=== PATIENT | male | born 1985 | race Caucasian/White ===

== ENCOUNTER 2021-01-04 18:35 | Inpatient (IN) | payer MEDICAID, OTHER ==
[~2021-01-04] VITALS: Ht 190.5 cm; Wt 90.9 kg
[2021-01-04] MEDS ORDERED: ACETAMINOPHEN ES 500 MG TABLET PO ONE (19:00)
[2021-01-04] MEDS ORDERED: CEFTRIAXONE 1 G VIAL IM ONE (19:00)
[2021-01-04] MEDS ORDERED: ONDANSETRON ODT 4 MG TAB.RAPDIS SL ONE (19:00)
--- NOTE | 2021-01-04 19:00 | NUR ---
at bedside to do MSE.
[2021-01-04] MEDS ORDERED: CEPH500C2 PO (19:01)
[2021-01-04] MEDS ORDERED: ACETAMINOPHEN ES 500 MG TABLET ONE (19:09)
[2021-01-04] MEDS ORDERED: ONDANSETRON ODT 4 MG TAB.RAPDIS ONE (19:09)
[2021-01-04] MEDS ORDERED: LIDOCAINE HCL 1% 20 ML VIAL ONE (19:09)
[2021-01-04] MEDS ORDERED: CEFTRIAXONE 1 G VIAL ONE (19:10)
[2021-01-04] MEDS ORDERED: KETOROLAC TROMETHAMINE 30 MG INJ IVP ONE (19:15)
[2021-01-04] MEDS ORDERED: IV NORMAL SALINE 1000 ML BAG IV ONE (19:15)
[2021-01-04] MEDS ORDERED: VANCOMYCIN IV 1,000 MG in IV DEXTROSE 5% 250 ML IV ONE (19:15)
[2021-01-04] MEDS ORDERED: ONDANSETRON 4 MG/2 ML VIAL IV ONE (19:15)
--- NOTE | 2021-01-04 19:15 | NUR ---
xray techician at b[facility] for portable chest xray .
--- NOTE | 2021-01-04 19:30 | NUR ---
mani at [employer] [employer] .
[2021-01-04 19:33] LABS: BASOPHILS % (AUTO) 0.2 % (0.0-2.0); HEMATOCRIT 43.5 % (36.7-47.1); HEMOGLOBIN 15.2 g/dL (12.5-16.3); LYMPHOCYTES % (AUTO) 15.1 % (20.5-51.5); MEAN CORPUSCULAR HEMOGLOBIN 29.7 uug (23.8-33.4); MEAN CORPUSCULAR HGB CONC 35 g/dL (32.5-36.3); MONOCYTES # (AUTO) 0.8 K/uL (2.0-10.0); MONOCYTES % (AUTO) 11.9 % (0.0-11.0); NEUTROPHILS % (AUTO) 72.8 % (38.5-71.5); PLATELET COUNT (AUTO) 176 K/uL (152-348); RED BLOOD CELL COUNT(AUTO) 5.12 MIL/uL (4.06-5.63); WHITE BLOOD COUNT (AUTO) 6.8 K/uL (3.6-10.2)
[2021-01-04] MEDS ORDERED: VANCOMYCIN IV 200 ML ONE (19:34)
[2021-01-04 19:44] LABS: BILIRUBIN,DIRECT 0.2 mg/dL (0.0-0.2); BILIRUBIN,TOTAL 0.6 mg/dL (0.2-1.0); CREATININE 1.4 mg/dL (0.6-1.3); POTASSIUM 3.1 mmol/L (3.5-5.1)
[2021-01-04 19:45] LABS: TOTAL PROTEIN, SERUM 8.1 g/dL (6.4-8.2)
--- NOTE | 2021-01-04 19:52 | NUR ---
manufacturing tech Aubrey states the patient is COVID +, MD Mejia Toussaint made aware.
[2021-01-04 19:54] LABS: *CLARITY,URINE CLEAR (CLEAR)
[2021-01-04 19:55] LABS: *BILIRUBIN,URIN 1+ (NEGATIVE); *BLOOD, URINE NEGATIVE (NEGATIVE); *COLOR,URINE YELLOW (YELLOW); *KETONES,URINE 2+ (NEGATIVE); *UROBILINOGEN,URINE 0.2 E.U./dl (NORMAL); LEUKOCYTE ESTERASE ,URINE NEGATIVE (NEGATIVE); NITRITE, URINE NEGATIVE (NEGATIVE); UGLUCOSE NEGATIVE (NEGATIVE)
[2021-01-04] MEDS ORDERED: KETOROLAC TROMETHAMINE 30 MG INJ ONE (19:56)
[2021-01-04] MEDS ORDERED: ONDANSETRON 4 MG/2 ML VIAL ONE (19:56)
[2021-01-04 19:58] LABS: *AMPHETAMINE, URINE NEGATIVE (NEGATIVE); *CANNABINOID, URINE NEGATIVE (NEGATIVE); *COCCAINE, URINE NEGATIVE (NEGATIVE); *OPIATE, URINE NEGATIVE (NEGATIVE); *PHENCYCLIDINE SCREEN,URINE NEGATIVE (NEGATIVE)
[2021-01-04 20:07] LABS: BACTERIA,URINE NONE SEEN /HPF (NONE SEEN); RBC,URINE 0-3 /HPF (0-3); SQUAMOUS EPITHELIAL CELL,UR NONE SEEN /HPF (NONE SEEN)
--- NOTE | 2021-01-04 21:05 | NUR ---
BELONGINGS INVENTORY DONE AND SIGNED BY PATIENT ,PATIENT WANTS WALLET,KEYS AND CELL PHONE WITH HIM .
--- NOTE | 2021-01-04 21:09 | NUR ---
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
--- NOTE | 2021-01-04 21:10 | NUR ---
: GONZALEZ SPOKED WITH PATIENT AND THIS TIME PATIENT AGRESS TO STAY AND BE ADMITTED.
[2021-01-04] MEDS ORDERED: MAGNESIUM HYDROXIDE 30 ML LIQUID UDC PO PRN (21:15)
[2021-01-04] MEDS ORDERED: ONDANSETRON 4 MG/2 ML VIAL IV PRN (21:15)
--- NOTE | 2021-01-04 21:16 | NUR ---
REPORT GIVEN TO YULI CURTIS IN MEDICAL SURGICAL FLOOR .PATIENT GOING TO 316.
--- NOTE | 2021-01-04 21:30 | NUR ---
WHEELED PATIENT TO ROOM 316, PATIENT WENT WITH ALL BELONGINGS AND V/S WNL . NO RESPIRATORY DISTRESS.PATIENT COVID + WENT TO ROOM 316 AND INFRMED RN FOR COVID PRECAUTION .
[2021-01-04 21:45] VITALS: BP 106/71
--- NOTE | 2021-01-04 21:45 | NUR ---
Received patient via wheelchair from the ED admitted for Cellulitis. Patient AAOx4, mentally delayed. On RA O2 @ 97% denies SOB, dry cough present. Temp 99.0 orally. COVID rapid positive. Isolation precautions initiated and in place. Pt ambulatory and steady. Left upper thigh redness, patient denies pain or discomfort, stated "I think it might just be a pimple and I might be able to go home, I don't think it's bad", picture taken and in chart. Safety measures in place, bed locked and in lowest position.
[2021-01-04] MEDS: IV NS 1000 ML 1,000 ML IV PRN (23:00)
[2021-01-05] MEDS: ACETAMINOPHEN 325 MG TABLET PO PRN ×3 (02:59→16:23)
--- NOTE | 2021-01-05 03:15 | NUR ---
Patient c/o fever and chills. Oral temp 102.0. Patient covered in multiple heavy blankets. Advised patient to take remove the blankets and take the Tylenol, patient stated "I am probably fine and don't need the tylenol. I need more blankets because im cold". Provided patient education, after discussing patient became willing to take prn medication and remove blankets. Administered Tylenol per orders and provided cooling measures.
[2021-01-05] MEDS: HYDROCODONE/APAP 5-325MG TABLET PO PRN ×3 (04:32→19:47)
[2021-01-05 04:50] VITALS: BP 105/64
[2021-01-05 06:27] LABS: BASOPHILS % (AUTO) 0.3 % (0.0-2.0); HEMATOCRIT 36.7 % (36.7-47.1); LYMPHOCYTES # (AUTO) 0.9 K/uL (20.0-40.0); LYMPHOCYTES % (AUTO) 15.3 % (20.5-51.5); MEAN CORPUSCULAR HEMOGLOBIN 29.9 uug (23.8-33.4); MEAN CORPUSCULAR HGB CONC 36 g/dL (32.5-36.3); MEAN CORPUSCULAR VOLUME 84.3 fL (73.0-96.2); MONOCYTES # (AUTO) 0.6 K/uL (2.0-10.0); MONOCYTES % (AUTO) 10.4 % (0.0-11.0); NEUTROPHILS # (AUTO) 4.4 K/uL (1.8-8.9); PLATELET COUNT (AUTO) 155 K/uL (152-348); RED BLOOD CELL COUNT(AUTO) 4.35 MIL/uL (4.06-5.63); WHITE BLOOD COUNT (AUTO) 5.9 K/uL (3.6-10.2)
[2021-01-05] MEDS: PANTOPRAZOLE SODIUM 40 MG TABLET.DR PO SCH (06:32)
[2021-01-05 06:41] LABS: CREATININE 1.4 mg/dL (0.6-1.3); MAGNESIUM 1.9 mg/dL (1.8-2.4); PHOSPHOROUS 2.5 mg/dL (2.5-4.9); POTASSIUM 3.4 mmol/L (3.5-5.1)
[2021-01-05 06:46] LABS: THYROID STIMULATING HORMONE 1.65 mIU/mL (0.358-3.740)
--- NOTE | 2021-01-05 06:48 | NUR ---
Patient covered in multiple layers of blankets, refusing to remove. Oral temp 102.0, administered Tylenol and cooling measures, after providing lengthy patient education. C/o body aches and cough. Pain medication administered per orders. Latest temp 99.2 Denies SOB, O2 95% on RA. Isolation and safety measures in place.
[2021-01-05] MEDS ORDERED: HYDROCODONE BIT/HOMATROPINE 5 ML UDC PO PRN (09:30)
[2021-01-05] MEDS ORDERED: POTASSIUM CHLORIDE 20 MEQ TAB.PRT.SR PO ONE (09:45)
[2021-01-05] MEDS: CEFTRIAXONE 1 G in IV DEXTROSE 5% 50 ML IV SCH (10:32)
[2021-01-05] MEDS: VANCOMYCIN IV 2,000 MG in IV DEXTROSE 5% 500 ML IV SCH (11:11)
[2021-01-05 11:35] VITALS: BP 109/65
[2021-01-05] MEDS ORDERED: VANCOMYCIN IV 2,000 MG in IV DEXTROSE 5% 500 ML IV SCH (12:00)
--- NOTE | 2021-01-05 13:00 | NUR ---
DR WESTBROOK WAS AT PATIENT BEDSIDE AND EXAMINED PATIENT'S REDNESS TO HIS THIGH
[2021-01-05] MEDS: IV NS 1000 ML 1,000 ML IV PRN (15:12)
[2021-01-05 16:00] VITALS: BP 102/61
[2021-01-05 16:06] LABS: *BILIRUBIN,URIN NEGATIVE (NEGATIVE); *BLOOD, URINE NEGATIVE (NEGATIVE); *CLARITY,URINE CLEAR (CLEAR); *COLOR,URINE YELLOW (YELLOW); *KETONES,URINE NEGATIVE (NEGATIVE); *UROBILINOGEN,URINE 0.2 E.U./dl (NORMAL); LEUKOCYTE ESTERASE ,URINE NEGATIVE (NEGATIVE); NITRITE, URINE NEGATIVE (NEGATIVE); UGLUCOSE NEGATIVE (NEGATIVE)
--- NOTE | 2021-01-05 16:58 | NUR ---
patient is alert, oriented, very repetitive, noted with fever, no chills, no nausea, no vomiting, cooling measures done, tylenol given, room air, no sob, resp even nonlabored, no acute distress noted, continue to monitor
--- NOTE | 2021-01-05 17:21 | NUR ---
Patient still noted with temp 103 orally, dr carrera made aware, with order to start remdesivir, patient denied chills, continue to monitor
--- NOTE | 2021-01-05 18:26 | NUR ---
cooling blanked placed under patient to manage the temp, continue to monitor, patient is alert, oriented x4, no chills, no distress noted
--- NOTE | 2021-01-05 18:42 | NUR ---
patient oral temp came down to 100.3 with cooling blanket, no distress noted, continue to monitor
--- NOTE | 2021-01-05 18:43 | NUR ---
patient refused monitoring of rectal temp, patient right to refuse respected, continue to monitor oral temp
[2021-01-05] MEDS ORDERED: CEFTRIAXONE 1 G in IV DEXTROSE 5% 50 ML IV SCH (20:00)
--- NOTE | 2021-01-05 20:10 | NUR ---
PATIENT HAS 102.6 TEMP ORAL, REFUSED TO COOLING BLANKET, GIVEN ICE BAG, REQUEST FOR NARCO, 95% AT ROOM AIR AT THIS TIME, REFUSED OXYGEN. WILL CONT TO MONITOR.
[2021-01-05 20:30] VITALS: BP 104/60
--- NOTE | 2021-01-05 21:05 | NUR ---
INFECTIOUS NURSE BRIGITTE MADE AWARE OF PATIENT ELEVATED TEMP 102., WITH NO NEW ORDER AT THIS TIME. PATIENT CONTINUE ON COOLING MEASURE, REFUSED TYLENOL, REFUSED COOLING BLANKET, GIVEN ICE PACK FOR PLACE ON BOTH ARMPIT, AND ICE WATER TO DRINK, CONT ON PAIN MANAGEMENT. CALL LIGHT WITHIN REACH,
--- NOTE | 2021-01-05 23:05 | NUR ---
NOTIFY REGINA SENIOR ACCOUNT CLERK REGARDING TEMP OF 103. ORALLY, AND PATIENT NON COMPLIANT WITH CARE AND MEDICATIONS, PATIENT ALERT ORIENTED, NO SOB NO CHEST PAIN, NO S/S OF DISTRESS, KEPT SAYING "I'M RICH" "I FEEL RICH". CONT COOLING MEASURES, CONT TO MONITOR.
[2021-01-06] MEDS: VANCOMYCIN IV 2,000 MG in IV DEXTROSE 5% 500 ML IV SCH ×2 (00:33→15:30)
[2021-01-06] MEDS: HYDROCODONE/APAP 5-325MG TABLET PO PRN (00:34)
[2021-01-06] MEDS: ACETAMINOPHEN 325 MG TABLET PO PRN ×2 (00:34→06:52)
--- NOTE | 2021-01-06 00:49 | NUR ---
PATIENT ALERT ORIENTED, NO S/S OF DISTRESS, COOLING MEASURE CONTINUE, RECHEK TEMP 100.3. CONT ON PAIN MANAGEMENT, CALL LIGHT WITHIN REACH.
[2021-01-06 04:35] VITALS: BP 108/63
[2021-01-06] MEDS: IV NS 1000 ML 1,000 ML IV PRN ×2 (04:42→14:00)
[2021-01-06 06:50] LABS: BASOPHILS % (AUTO) 0.2 % (0.0-2.0); HEMATOCRIT 36.9 % (36.7-47.1); LYMPHOCYTES # (AUTO) 1.3 K/uL (20.0-40.0); LYMPHOCYTES % (AUTO) 13.9 % (20.5-51.5); MEAN CORPUSCULAR HEMOGLOBIN 29.8 uug (23.8-33.4); MEAN CORPUSCULAR HGB CONC 35 g/dL (32.5-36.3); MEAN CORPUSCULAR VOLUME 84.4 fL (73.0-96.2); MONOCYTES # (AUTO) 0.4 K/uL (2.0-10.0); MONOCYTES % (AUTO) 4.9 % (0.0-11.0); NEUTROPHILS # (AUTO) 7.3 K/uL (1.8-8.9); PLATELET COUNT (AUTO) 143 K/uL (152-348); RED BLOOD CELL COUNT(AUTO) 4.38 MIL/uL (4.06-5.63); WHITE BLOOD COUNT (AUTO) 9.1 K/uL (3.6-10.2)
[2021-01-06] MEDS: PANTOPRAZOLE SODIUM 40 MG TABLET.DR PO SCH (06:51)
[2021-01-06 07:17] LABS: THYROID STIMULATING HORMONE 0.869 mIU/mL (0.358-3.740)
--- NOTE | 2021-01-06 07:20 | NUR ---
report received. patient awake in bed, no complains of any pain or distress noted at this time. call light kept within reach. will continue to monitor.
--- NOTE | 2021-01-06 07:36 | NUR ---
Temp 103. given tylenol plus cooling measure, current temp 99.9 oral. alert oriented, no s/s of distress.
[2021-01-06 07:43] LABS: CREATININE 1.4 mg/dL (0.6-1.3); MAGNESIUM 1.7 mg/dL (1.8-2.4); PHOSPHOROUS 2.4 mg/dL (2.5-4.9); POTASSIUM 3.4 mmol/L (3.5-5.1); URIC ACID 6.1 mg/dL (3.5-7.2)
[2021-01-06] MEDS: DEXAMETHASONE SOD PHOSPHATE 10 MG INJ IV SCH (09:15)
[2021-01-06] MEDS: CEFTRIAXONE 1 G in IV DEXTROSE 5% 50 ML IV SCH (09:16)
[2021-01-06] MEDS: ENOXAPARIN SODIUM 40 MG/0.4 ML DISP.SYRIN SQ SCH (09:25)
[2021-01-06] MEDS ORDERED: CEFTRIAXONE 1 G in IV DEXTROSE 5% 50 ML IV SCH (10:15)
[2021-01-06] MEDS ORDERED: POTASSIUM CHLORIDE 20 MEQ TAB.PRT.SR PO SCH (10:30)
[2021-01-06] MEDS: MAGNESIUM SULFATE/D5W 100 ML IV SCH ×2 (10:55→13:09)
[2021-01-06] MEDS: ACETYLCYSTEINE 10% 4ML VIAL NEB SCH ×3 (11:45→23:30)
[2021-01-06] MEDS ORDERED: REMDESIVIR (CHARGED) 200 MG in IV NORMAL SALINE 210 ML IV ONE (12:00)
[2021-01-06 12:51] VITALS: BP 106/60
--- NOTE | 2021-01-06 13:44 | NUR ---
Pt refused HHN, sts does not want medicine, nurse notified and aware, Sarah RN / Génesis RN.. Pt in bed semi-Anderson's, dry cough, sts sore throat, no respiratory distress / difficulty breathing.. will continue to monitor..
[2021-01-06 16:00] VITALS: BP 102/60
[2021-01-06] MEDS ORDERED: NEUTRA PHOS PACKET PO ONE (17:15)
--- NOTE | 2021-01-06 18:34 | NUR ---
patient awake in bed HOB elevated, no complains of any pain or discomfort at this time. iv patent and running with NS at 75ml/hr. on nasal cannula at 2L with humidifier. no SOB noted at this time. safety precautions maintained. call light kept within reach. will report to oncoming nurse.
--- NOTE | 2021-01-06 20:00 | NUR ---
RECEIVED PATIENT AWAKE IN BED. A/O X4, BUT NEEDS FREQUENT RE-DIRECTION. ON ISOLATION FOR COVID-POSITIVE. VS WNL. AFEBRILE. ON O2 2L NC SATING WELL. NO RESP.DISTRESS NOTED. DENIES ANY PAIN, BUT C/O DISCOMFORT IN CHEST FROM FREQUENT COUGHING, NON-PRODUCTIVE, DENIES ANY NEED FOR ANY PAIN MEDICATION. IV SITE NOTED TO RIGHT AC, LEAKING. REMOVED AND RESTARTED TO LEFT FA, #22 GAUGE. CALL LIGHT IN REACH. ALL NEEDS ATTENDED. WILL CONTINUE TO MONITOR AND ASSESS.
[2021-01-06 20:25] VITALS: BP 105/69
[2021-01-07] VITALS: BP 102/60
[2021-01-07 03:58] LABS: BASOPHILS % (AUTO) 0.2 % (0.0-2.0); HEMOGLOBIN 13.4 g/dL (12.5-16.3); LYMPHOCYTES % (AUTO) 7.7 % (20.5-51.5); MEAN CORPUSCULAR HEMOGLOBIN 28.8 uug (23.8-33.4); MEAN CORPUSCULAR HGB CONC 34 g/dL (32.5-36.3); MEAN CORPUSCULAR VOLUME 84.1 fL (73.0-96.2); MONOCYTES # (AUTO) 0.6 K/uL (2.0-10.0); MONOCYTES % (AUTO) 4.9 % (0.0-11.0); NEUTROPHILS # (AUTO) 11.3 K/uL (1.8-8.9); NEUTROPHILS % (AUTO) 87.2 % (38.5-71.5); PLATELET COUNT (AUTO) 169 K/uL (152-348); RED BLOOD CELL COUNT(AUTO) 4.64 MIL/uL (4.06-5.63)
[2021-01-07 04:14] LABS: BILIRUBIN,DIRECT 0.2 mg/dL (0.0-0.2); BILIRUBIN,TOTAL 0.4 mg/dL (0.2-1.0); CREATININE 1.2 mg/dL (0.6-1.3); PHOSPHOROUS 1.8 mg/dL (2.5-4.9); POTASSIUM 3.7 mmol/L (3.5-5.1); TOTAL PROTEIN, SERUM 6.7 g/dL (6.4-8.2)
[2021-01-07 04:30] VITALS: BP 109/66
[2021-01-07] MEDS: VANCOMYCIN IV 2,000 MG in IV DEXTROSE 5% 500 ML IV SCH ×2 (04:38→19:47)
[2021-01-07] MEDS: PANTOPRAZOLE SODIUM 40 MG TABLET.DR PO SCH (06:03)
--- NOTE | 2021-01-07 06:52 | NUR ---
ON TELE SR.
[2021-01-07] MEDS: ACETYLCYSTEINE 10% 4ML VIAL NEB SCH ×3 (07:35→22:33)
[2021-01-07] MEDS: DEXAMETHASONE SOD PHOSPHATE 10 MG INJ IV SCH (08:25)
[2021-01-07] MEDS: ENOXAPARIN SODIUM 40 MG/0.4 ML DISP.SYRIN SQ SCH (08:52)
[2021-01-07] MEDS: CEFTRIAXONE 1 G in IV DEXTROSE 5% 50 ML IV SCH (09:43)
[2021-01-07 11:15] VITALS: BP 102/59
[2021-01-07] MEDS: IV NS 1000 ML 1,000 ML IV PRN (11:50)
[2021-01-07] MEDS: REMDESIVIR (CHARGED) 100 MG in IV NORMAL SALINE 100 ML IV SCH (11:50)
[2021-01-07] MEDS ORDERED: POTASSIUM PHOSPHATE MM 15 MMOL in IV NORMAL SALINE 250 ML IV ONE (13:00)
--- NOTE | 2021-01-07 13:00 | NUR ---
Patient tolerated Remdesivir infusion. BP 105/60 HR 80s. No s/s of distress or SOB noted. Patient on RA SpO2 93-95%. Denies pain at this time.
[2021-01-07 15:31] VITALS: BP 103/64
--- NOTE | 2021-01-07 15:49 | NUR ---
received COVID PCR result from Adeel from laboratory. Result: COVID PCR (+). notified.
[2021-01-07 20:38] VITALS: BP 104/61
[2021-01-08 00:36] VITALS: BP 108/60
[2021-01-08 04:00] VITALS: BP 108/67
[2021-01-08 05:46] LABS: BASOPHILS % (AUTO) 0.3 % (0.0-2.0); HEMATOCRIT 39.3 % (36.7-47.1); HEMOGLOBIN 13.6 g/dL (12.5-16.3); LYMPHOCYTES # (AUTO) 0.9 K/uL (20.0-40.0); LYMPHOCYTES % (AUTO) 6.2 % (20.5-51.5); MEAN CORPUSCULAR HEMOGLOBIN 29.4 uug (23.8-33.4); MEAN CORPUSCULAR HGB CONC 35 g/dL (32.5-36.3); MONOCYTES # (AUTO) 1.1 K/uL (2.0-10.0); MONOCYTES % (AUTO) 7.9 % (0.0-11.0); NEUTROPHILS % (AUTO) 85.6 % (38.5-71.5); PLATELET COUNT (AUTO) 200 K/uL (152-348); RED BLOOD CELL COUNT(AUTO) 4.62 MIL/uL (4.06-5.63)
--- NOTE | 2021-01-08 05:55 | NUR ---
Patient ALOx4.On RA, no s/s of distress noted. Iv on left FA 20g patent and intact with IVF running well at 75 ml/hr.Administered IV ATB.No a/r noted.Patient is concerned on his left groin redness.No skin breakdown.Patient was seen and examined by PRODUCT SAFETY TEST ENGINEER Mariela with new order US Pelvic.Patient ambulates to bathroom .Bmx1. Compliant with medication.Proper PPE strictly observed for covid.Vss.All needs anticipated and met accordingly.
[2021-01-08 06:03] LABS: BILIRUBIN,DIRECT 0.1 mg/dL (0.0-0.2); BILIRUBIN,TOTAL 0.5 mg/dL (0.2-1.0); POTASSIUM 3.9 mmol/L (3.5-5.1); TOTAL PROTEIN, SERUM 6.9 g/dL (6.4-8.2)
[2021-01-08] MEDS: PANTOPRAZOLE SODIUM 40 MG TABLET.DR PO SCH (06:05)
--- NOTE | 2021-01-08 07:15 | NUR ---
patient awake in bed, no signs of any pain or discomfort noted at this time. call light within reach, will continue to monitor.
[2021-01-08 07:23] LABS: MAGNESIUM 2.3 mg/dL (1.8-2.4); PHOSPHOROUS 2.4 mg/dL (2.5-4.9)
[2021-01-08] MEDS: ACETYLCYSTEINE 10% 4ML VIAL NEB SCH ×3 (07:35→23:30)
[2021-01-08] MEDS ORDERED: POTASSIUM PHOSPHATE MM 15 MMOL in IV NORMAL SALINE 250 ML IV ONE (08:30)
[2021-01-08] MEDS: VANCOMYCIN IV 2,000 MG in IV DEXTROSE 5% 500 ML IV SCH ×2 (08:31→19:37)
[2021-01-08] MEDS: DEXAMETHASONE SOD PHOSPHATE 10 MG INJ IV SCH (08:38)
[2021-01-08] MEDS: ENOXAPARIN SODIUM 40 MG/0.4 ML DISP.SYRIN SQ SCH (08:52)
[2021-01-08] MEDS: CEFTRIAXONE 1 G in IV DEXTROSE 5% 50 ML IV SCH (10:17)
[2021-01-08] MEDS: POTASSIUM PHOSPHATE MM 7.5 MMOL in IV NORMAL SALINE 97.5 ML IV SCH ×2 (11:21→15:28)
[2021-01-08 11:31] VITALS: BP 112/67
[2021-01-08] MEDS: REMDESIVIR (CHARGED) 100 MG in IV NORMAL SALINE 100 ML IV SCH (13:35)
[2021-01-08 15:32] VITALS: BP 110/64
--- NOTE | 2021-01-08 18:46 | NUR ---
patient in bed awake and alert, no complains of any pain or discomfort at this time. on room air saturation at 95%. call light within reach. IV patent and flushed. will report to oncoming nurse.
--- NOTE | 2021-01-08 19:15 | NUR ---
Patient report received from [facility]. Patient is alert and oriented x 3 to person, place, and time. Pt is hyperverbal. On TELE monitor, sinus rhythm. Comfortable on room air saturating between 95-98%. No reports of shortness of breath. Patient has an IV RFA 20g, patent. Bed in low and locked position. Safety precautions in place. Call light within reach.
[2021-01-08 20:30] VITALS: BP 120/77
[2021-01-08] MEDS: IV NS 1000 ML 1,000 ML IV PRN (23:54)
[2021-01-09] VITALS: BP 107/72
[2021-01-09 04:20] VITALS: BP 125/58
[2021-01-09 06:16] LABS: BASOPHILS % (AUTO) 0.2 % (0.0-2.0); HEMOGLOBIN 13.7 g/dL (12.5-16.3); LYMPHOCYTES # (AUTO) 0.9 K/uL (20.0-40.0); LYMPHOCYTES % (AUTO) 6.6 % (20.5-51.5); MEAN CORPUSCULAR HEMOGLOBIN 29.8 uug (23.8-33.4); MEAN CORPUSCULAR HGB CONC 35 g/dL (32.5-36.3); MEAN CORPUSCULAR VOLUME 84.9 fL (73.0-96.2); MONOCYTES # (AUTO) 1.5 K/uL (2.0-10.0); MONOCYTES % (AUTO) 11.3 % (0.0-11.0); NEUTROPHILS # (AUTO) 10.8 K/uL (1.8-8.9); NEUTROPHILS % (AUTO) 81.9 % (38.5-71.5); PLATELET COUNT (AUTO) 245 K/uL (152-348); WHITE BLOOD COUNT (AUTO) 13.2 K/uL (3.6-10.2)
[2021-01-09] MEDS: PANTOPRAZOLE SODIUM 40 MG TABLET.DR PO SCH (06:25)
[2021-01-09 06:26] LABS: BILIRUBIN,DIRECT 0.1 mg/dL (0.0-0.2); BILIRUBIN,TOTAL 0.5 mg/dL (0.2-1.0); CREATININE 0.9 mg/dL (0.6-1.3); TOTAL PROTEIN, SERUM 6.3 g/dL (6.4-8.2)
--- NOTE | 2021-01-09 06:54 | NUR ---
Patient awake, alert and oriented x 3. Slept well. No reports of pain or shortness of breath at this time. Comfortable on room air. Call light within reach.
[2021-01-09] MEDS: ACETYLCYSTEINE 10% 4ML VIAL NEB SCH ×3 (07:35→23:30)
[2021-01-09 08:30] VITALS: BP 127/83
[2021-01-09] MEDS: VANCOMYCIN IV 2,000 MG in IV DEXTROSE 5% 500 ML IV SCH ×2 (08:50→21:15)
--- NOTE | 2021-01-09 09:00 | NUR ---
Received report from senior design engineer nurse that pt removed PIV. No s/s of infiltration noted. New IV started: L FA 20 g, patent and intact. Morning medications delayed d/t no IV site, pharmacy aware. Pt awake, alert, able to verbalize needs. L thigh redness noted. No SOB at rest noted, pt reports some SOB with movement. O2 saturation 95% on RA. Pt afebrile. VSS. Dr. Carmona at bedside this am, examined pt, report given. Call light and belongings within reach. Safety ensured. Continue plan of care.
[2021-01-09] MEDS: DEXAMETHASONE SOD PHOSPHATE 10 MG INJ IV SCH (09:33)
[2021-01-09] MEDS: ENOXAPARIN SODIUM 40 MG/0.4 ML DISP.SYRIN SQ SCH (09:35)
[2021-01-09 11:53] VITALS: BP 134/85
[2021-01-09] MEDS: CEFTRIAXONE 1 G in IV DEXTROSE 5% 50 ML IV SCH (11:57)
[2021-01-09] MEDS: REMDESIVIR (CHARGED) 100 MG in IV NORMAL SALINE 100 ML IV SCH (12:59)
[2021-01-09 15:32] VITALS: BP 120/85
[2021-01-09] MEDS: IV NS 1000 ML 1,000 ML IV PRN (17:17)
--- NOTE | 2021-01-09 18:58 | NUR ---
Pt in no acute distress, talking on the telephone. Per pt, was able to ambulate safely to restroom this evening without feeling SOB. IV fluids infusing per order. Pt tolerated IV antibiotics and Remdesiver, no a/r noted. Safety ensured, call light in reach. Will endorse to land acquisition manager nurse for continuity of care.
[2021-01-09 20:12] VITALS: BP 124/83
[2021-01-10] VITALS: BP 138/86
[2021-01-10 04:12] VITALS: BP 127/81
[2021-01-10] MEDS: PANTOPRAZOLE SODIUM 40 MG TABLET.DR PO SCH (06:20)
[2021-01-10 06:36] LABS: BASOPHILS % (AUTO) 0.2 % (0.0-2.0); HEMATOCRIT 38.4 % (36.7-47.1); HEMOGLOBIN 13.3 g/dL (12.5-16.3); LYMPHOCYTES # (AUTO) 1.2 K/uL (20.0-40.0); LYMPHOCYTES % (AUTO) 9.5 % (20.5-51.5); MEAN CORPUSCULAR HEMOGLOBIN 29.6 uug (23.8-33.4); MEAN CORPUSCULAR HGB CONC 35 g/dL (32.5-36.3); MEAN CORPUSCULAR VOLUME 85.5 fL (73.0-96.2); MONOCYTES # (AUTO) 1.7 K/uL (2.0-10.0); MONOCYTES % (AUTO) 13.3 % (0.0-11.0); NEUTROPHILS # (AUTO) 9.6 K/uL (1.8-8.9); PLATELET COUNT (AUTO) 272 K/uL (152-348); WHITE BLOOD COUNT (AUTO) 12.4 K/uL (3.6-10.2)
--- NOTE | 2021-01-10 07:00 | NUR ---
Patient afebrile last night. No s/s of acute distress noted at this time. Denies SOB on RA. Patient anxious to go home and take a hot shower. VSS. Sinus Rhythm on Tele. Safety measures and Isolation precautions observed. Will endorse to oncoming nurse
[2021-01-10 07:30] LABS: BILIRUBIN,TOTAL 0.5 mg/dL (0.2-1.0); MAGNESIUM 2.2 mg/dL (1.8-2.4); PHOSPHOROUS 3.6 mg/dL (2.5-4.9); POTASSIUM 3.7 mmol/L (3.5-5.1); TOTAL PROTEIN, SERUM 6.2 g/dL (6.4-8.2)
[2021-01-10] MEDS: ACETYLCYSTEINE 10% 4ML VIAL NEB SCH (07:35)
[2021-01-10 08:23] VITALS: BP 123/81
[2021-01-10] MEDS: VANCOMYCIN IV 2,000 MG in IV DEXTROSE 5% 500 ML IV SCH (08:37)
[2021-01-10] MEDS: DEXAMETHASONE SOD PHOSPHATE 10 MG INJ IV SCH (08:39)
[2021-01-10] MEDS: ENOXAPARIN SODIUM 40 MG/0.4 ML DISP.SYRIN SQ SCH (09:17)
[2021-01-10] MEDS: CEFTRIAXONE 1 G in IV DEXTROSE 5% 50 ML IV SCH (11:29)
[2021-01-10] MEDS: IV NS 1000 ML 1,000 ML IV PRN (11:37)
[2021-01-10 11:47] VITALS: BP 126/80
[2021-01-10] MEDS: REMDESIVIR (CHARGED) 100 MG in IV NORMAL SALINE 100 ML IV SCH (12:46)
[2021-01-10 14:29] VITALS: BP 114/75
--- NOTE | 2021-01-10 17:35 | NUR ---
Patient remains alert, oriented x 3, not in any form of distress on room air, ambulatory. He denies any pain or discomfort. Discharge instructions provided to the patient with verbalized understanding. Discharge papers signed by and given to the patient. All belongings well accounted for. Patient refused to have discharge photos taken. Patient refused to take prescription for antibiotics and steroids per recommendation of ID to take home. Explained risks and benefits but patient still refused to have prescription. Dr. Barcenas made aware. Assisted patient safely to the lobby via wheelchair. Discharged patient to home at 1700.
== END 2021-01-10 17:00 | disposition home or self-care (01) | DRG 720 ==
LOC: ER 18:37 → MEDSURG3 21:37 → TELE3 01-06 14:00
PROC: XW033E5 Introduction of Remdesivir Anti-infective into Peripheral Vein, Percutaneous Approach, New Technology Group 5 (ICD-10-PCS; principal; 2021-01-06)
DX: A41.89 Other specified sepsis (principal); U07.1 COVID-19; J96.01 Acute respiratory failure with hypoxia; J12.82 Pneumonia due to coronavirus disease 2019; N17.0 Acute kidney failure with tubular necrosis; E87.1 Hypo-osmolality and hyponatremia; L03.116 Cellulitis of left lower limb; E87.6 Hypokalemia; L72.3 Sebaceous cyst; F79 Unspecified intellectual disabilities; E83.39 Other disorders of phosphorus metabolism; L03.314 Cellulitis of groin
CPT/HCPCS: 36415; 70030-TC; 71045; 83605; 83615; 83735; 83935; 84100; 84300; 84443; 84550; 85025; 85610; 85730; 86140; 87040; 87086; 93005; A4217; A4663; A9150; G0378; J0696; J1100; J1650; J1885; J2405; J3370; J3475; J3490; J7030; J7050; J7060; Q0162; U0003